=== PATIENT | male | born 1965 | race Caucasian/White ===

== ENCOUNTER 2017-06-22 15:56 | Emergency (ER) | payer MEDICAID ==
[~2017-06-22] VITALS: Ht 152.4 cm; Wt 86.0 kg
[~2017-06-22 15:56] MED LIST: SODI1TAB PO
[2017-06-22 16:00] VITALS: BP 176/109
[2017-06-22 16:40] LABS: BASOPHILS # (AUTO) 0.01 x10^3/uL (0-0.1); BASOPHILS % (AUTO) 0 % (0-1); EOSINOPHILS # (AUTO) 0.11 x10^3/uL (0-0.4); EOSINOPHILS % (AUTO) 1 % (1-7); LYMPHOCYTES # (AUTO) 1.96 x10^3/uL (1-3.4); LYMPHOCYTES % (AUTO) 18 % (22-44); MD NO; MEAN CORPUSCULAR HEMOGLOBIN 33.5 pg (27.5-34.5); MEAN CORPUSCULAR HGB CONC 34.3 g/dL (33.2-36.2); MEAN CORPUSCULAR VOLUME 97.7 fL (81-97); MONOCYTES # (AUTO) 0.94 x10^3/uL (0.2-0.8); MONOCYTES % (AUTO) 9 % (2-9); NEUTROPHILS # (AUTO) 7.81 x10^3/uL (1.8-6.8); NEUTROPHILS % (AUTO) 72 % (42-75); PLATELET COUNT 388 x10^3/uL (130-400); RED BLOOD COUNT 4.33 x10^6/uL (4.38-5.82); RED CELL DISTRIBUTION WIDTH 13.3 % (9.4-14.8)
[2017-06-22 16:47] LABS: ALBUMIN 3.7 g/dL (3.4-5.0); ANION GAP 5 mmol/L (5-15); CALCIUM 8.8 mg/dL (8.5-10.1); CHLORIDE 100 mmol/L (98-107); CREATININE 0.86 mg/dL (0.7-1.3)
[2017-06-22] MEDS ORDERED: CEFAZOLIN 1,000 MG IM ONE (17:00)
[2017-06-22] MEDS ORDERED: SULFAMETH./TRIMETHOPRIM DS 800MG/160MG TABLET PO ONE (17:00)
[2017-06-22] MEDS ORDERED: CEFAZOLIN 1,000 MG ONE (17:19)
[2017-06-22] MEDS ORDERED: SULFAMETH./TRIMETHOPRIM DS 800MG/160MG TABLET ONE (17:19)
== END 2017-06-22 17:29 | disposition home or self-care (01) ==
LOC: ED 17:18
DX: L03.116 Cellulitis of left lower limb (principal); I10 Essential (primary) hypertension
CPT/HCPCS: 36415; 80048; 82040; 85025; 96372; 99284; J0690

== ENCOUNTER 2017-06-23 14:09 | Emergency (ER) | payer MEDICAID ==
[~2017-06-23] VITALS: Ht 152.4 cm; Wt 85.6 kg
[2017-06-23 14:16] VITALS: BP 163/94
== END 2017-06-23 15:39 | disposition home or self-care (01) ==
LOC: ED 15:29
DX: L03.115 Cellulitis of right lower limb (principal); I10 Essential (primary) hypertension
CPT/HCPCS: 99281

== ENCOUNTER 2017-10-28 12:29 | Inpatient (IN) | payer MEDICAID ==
[~2017-10-28] VITALS: Ht 152.4 cm; Wt 84.6 kg
[2017-10-28] MEDS ORDERED: AMLO5TAB2 PO (13:19)
[2017-10-28] MEDS ORDERED: LISI-167 PO (13:19)
[2017-10-28] MEDS ORDERED: SODIUM CHLORIDE FLUSH 10ML SYR IVF ONE (14:00)
[2017-10-28] MEDS ORDERED: SODIUM CHLORIDE 0.9% 1,000ML IVBOLUS ONE (14:00)
[2017-10-28] MEDS ORDERED: SODIUM CHLORIDE 0.9%, 500ML IVBOLUS ONE (14:30)
[2017-10-28 14:39] LABS: INTERNATIONAL NORMALIZED RATIO 0.93 (0.93-1.1); PROTHROMBIN TIME 9.7 Seconds (9.6-11.5)
[2017-10-28 14:45] LABS: ANION GAP 13 mmol/L (5-15); BASOPHILS # (AUTO) 0.04 x10^3/uL (0-0.1); BASOPHILS % (AUTO) 0 % (0-1); CALCIUM 8.4 mg/dL (8.5-10.1); CHLORIDE 87 mmol/L (98-107); EOSINOPHILS # (AUTO) 0.11 x10^3/uL (0-0.4); EOSINOPHILS % (AUTO) 1 % (1-7); LYMPHOCYTES # (AUTO) 2.03 x10^3/uL (1-3.4); LYMPHOCYTES % (AUTO) 18 % (22-44); MD NO; MEAN CORPUSCULAR HEMOGLOBIN 33.5 pg (27.5-34.5); MEAN CORPUSCULAR VOLUME 98.5 fL (81-97); MEAN PLATELET VOLUME 7.6 fL (7.4-10.4); MONOCYTES # (AUTO) 1.33 x10^3/uL (0.2-0.8); MONOCYTES % (AUTO) 12 % (2-9); NEUTROPHILS # (AUTO) 7.83 x10^3/uL (1.8-6.8); NEUTROPHILS % (AUTO) 69 % (42-75); PLATELET COUNT 345 x10^3/uL (130-400)
[2017-10-28 14:48] LABS: ALANINE AMINOTRANSFERASE 31 U/L (12-78); ALKALINE PHOSPHATASE 80 U/L (45-117); BILIRUBIN,TOTAL 0.7 mg/dL (0.2-1.0); CREATININE 4.79 mg/dL (0.7-1.3); TOTAL PROTEIN 8.5 g/dL (6.4-8.2)
[2017-10-28] MEDS ORDERED: ONDANSETRON 2MG/ML, 2ML IVPush PRN (17:00)
[2017-10-28] MEDS ORDERED: ACETAMINOPHEN 325 MG TABLET PO PRN (17:00)
[2017-10-28] MEDS ORDERED: hydrALAzine 20 MG/ML, 1ML IVPush PRN (17:00)
[2017-10-28 17:24] LABS: CULTURE INDICATED? NO; MICROSCOPIC NOT IND
[2017-10-28 17:29] LABS: AMPHETAMINE SCREEN, URINE Positive (Negative); BARBITURATE SCREEN, URINE Negative (Negative); BENZODIAZEPINE SCREEN, URINE Negative (Negative); CANNABINOID SCREEN, URINE Negative (Negative); COCAINE SCREEN, URINE Negative (Negative); METHADONE SCREEN, URINE Negative (Negative); OPIATE SCREEN, URINE Negative (Negative)
[2017-10-28 17:34] LABS: OSMOLALITY,URINE 331 mOsm/kg (500-850)
[2017-10-28 17:35] LABS: SODIUM,URINE RANDOM 40 mmol/L
[2017-10-28] MEDS ORDERED: LORazepam 2 MG/ML, 1ML IVPush PRN (18:00)
[2017-10-28 20:24] VITALS: BP 112/67
[2017-10-28] MEDS: HEPARIN 5,000 UNITS/ML, 1ML SQ SCH (21:08)
[2017-10-28] MEDS: SODIUM CHLORIDE 0.9% 1,000 ML IV SCH (21:08)
[2017-10-29 03:57] VITALS: BP 106/68
[2017-10-29 06:07] LABS: BASOPHILS # (AUTO) 0.02 x10^3/uL (0-0.1); BASOPHILS % (AUTO) 0 % (0-1); EOSINOPHILS # (AUTO) 0.04 x10^3/uL (0-0.4); EOSINOPHILS % (AUTO) 1 % (1-7); LYMPHOCYTES # (AUTO) 1.46 x10^3/uL (1-3.4); LYMPHOCYTES % (AUTO) 22 % (22-44); MD NO; MEAN CORPUSCULAR HEMOGLOBIN 33.9 pg (27.5-34.5); MEAN CORPUSCULAR HGB CONC 34.6 g/dL (33.2-36.2); MEAN CORPUSCULAR VOLUME 98.2 fL (81-97); MEAN PLATELET VOLUME 7.3 fL (7.4-10.4); MONOCYTES # (AUTO) 0.75 x10^3/uL (0.2-0.8); MONOCYTES % (AUTO) 11 % (2-9); NEUTROPHILS # (AUTO) 4.28 x10^3/uL (1.8-6.8); NEUTROPHILS % (AUTO) 65 % (42-75); PLATELET COUNT 265 x10^3/uL (130-400); RED BLOOD COUNT 3.82 x10^6/uL (4.38-5.82); RED CELL DISTRIBUTION WIDTH 13.4 % (9.4-14.8)
[2017-10-29 06:23] LABS: CHLORIDE 106 mmol/L (98-107)
[2017-10-29 06:24] LABS: ALBUMIN 3.1 g/dL (3.4-5.0); ANION GAP 9 mmol/L (5-15); CALCIUM 8.1 mg/dL (8.5-10.1)
[2017-10-29 06:28] LABS: ALANINE AMINOTRANSFERASE 24 U/L (12-78); ALKALINE PHOSPHATASE 58 U/L (45-117); CREATININE 0.96 mg/dL (0.7-1.3); TOTAL PROTEIN 7.1 g/dL (6.4-8.2)
[2017-10-29 06:30] LABS: HEMOGLOBIN A1C 4.2 % (4.2-6.3)
[2017-10-29] MEDS: HEPARIN 5,000 UNITS/ML, 1ML SQ SCH ×3 (07:00→23:00)
[2017-10-29] MEDS: SODIUM CHLORIDE 0.9% 1,000 ML IV SCH (07:24)
[2017-10-29 08:41] VITALS: BP 111/73
[2017-10-29] MEDS: CHOLECALCIFEROL 1,000 UNIT TABLET PO SCH (13:30)
[2017-10-29 15:11] VITALS: BP 126/71
[2017-10-29 19:45] VITALS: BP 120/68
[2017-10-30 01:05] VITALS: BP 144/89
[2017-10-30] MEDS: HEPARIN 5,000 UNITS/ML, 1ML SQ SCH (07:00)
[2017-10-30] MEDS ORDERED: CHOL10003 PO (09:13)
[2017-10-30] MEDS: CHOLECALCIFEROL 1,000 UNIT TABLET PO SCH (09:43)
[2017-10-30 09:48] VITALS: BP 124/83
== END 2017-10-30 14:05 | disposition home or self-care (01) | DRG 683 ==
LOC: ED 14:35 → EDIP 15:40 → 4EST 18:27
PROVIDERS: ADMIT Hospitalist; ATTEND Hospitalist
DX: N17.9 Acute kidney failure, unspecified (principal); E87.1 Hypo-osmolality and hyponatremia; E83.51 Hypocalcemia; I95.9 Hypotension, unspecified; D72.829 Elevated white blood cell count, unspecified; E16.2 Hypoglycemia, unspecified; F10.10 Alcohol abuse, uncomplicated; F15.90 Other stimulant use, unspecified, uncomplicated; I10 Essential (primary) hypertension; R47.81 Slurred speech; Z91.19 Patient's noncompliance with other medical treatment and regimen; Z87.440 Personal history of urinary (tract) infections; Z79.899 Other long term (current) drug therapy; Z79.1 Long term (current) use of non-steroidal anti-inflammatories (NSAID)
CPT/HCPCS: 36415; 71045; 76770; 80053; 80307; 81003; 82140; 82306; 82550; 82570; 83036; 83605; 83690; 83930; 83935; 83970; 84295; 84300; 85025; 85610; 87040; 93005; 93306; 96360; J1644; J7030; J7040

== ENCOUNTER 2018-05-16 09:24 | Emergency (ER) | payer MEDICAID ==
[~2018-05-16] VITALS: Ht 152.4 cm; Wt 87.2 kg
[~2018-05-16 09:24] MED LIST changes: +AMLO5TAB7 PO; +CHOL10003 PO; +LISI-167 PO
[2018-05-16] MEDS ORDERED: SODIUM CHLORIDE FLUSH 10ML SYR IVF ONE (09:30)
[2018-05-16 09:31] VITALS: BP 172/110
[2018-05-16 09:50] LABS: BASOPHILS # (AUTO) 0.06 x10^3/uL (0-0.1); BASOPHILS % (AUTO) 1 % (0-1); EOSINOPHILS # (AUTO) 0.24 x10^3/uL (0-0.4); EOSINOPHILS % (AUTO) 4 % (1-7); LYMPHOCYTES # (AUTO) 2.19 x10^3/uL (1-3.4); LYMPHOCYTES % (AUTO) 35 % (22-44); MD NO; MEAN CORPUSCULAR HEMOGLOBIN 34.9 pg (27.5-34.5); MEAN CORPUSCULAR HGB CONC 35.1 g/dL (33.2-36.2); MEAN CORPUSCULAR VOLUME 99.3 fL (81-97); MEAN PLATELET VOLUME 7.1 fL (7.4-10.4); MONOCYTES # (AUTO) 0.54 x10^3/uL (0.2-0.8); MONOCYTES % (AUTO) 9 % (2-9); NEUTROPHILS # (AUTO) 3.17 x10^3/uL (1.8-6.8); NEUTROPHILS % (AUTO) 51 % (42-75); PLATELET COUNT 260 x10^3/uL (130-400); RED BLOOD COUNT 4.51 x10^6/uL (4.38-5.82)
[2018-05-16 09:59] LABS: INTERNATIONAL NORMALIZED RATIO 0.96 (0.93-1.1); PROTHROMBIN TIME 10.2 Seconds (9.6-11.5)
[2018-05-16 10:00] LABS: ALANINE AMINOTRANSFERASE 39 U/L (12-78); ALBUMIN 3.5 g/dL (3.4-5.0); ANION GAP 8 mmol/L (5-15); CALCIUM 7.5 mg/dL (8.5-10.1); CHLORIDE 103 mmol/L (98-107); CREATININE 0.71 mg/dL (0.7-1.3)
[2018-05-16] MEDS ORDERED: CEFAZOLIN PMX 1GM/50ML 50 ML IVPB ONE (10:00)
[2018-05-16 10:02] LABS: ALKALINE PHOSPHATASE 58 U/L (45-117); BILIRUBIN,TOTAL 0.5 mg/dL (0.2-1.0); TOTAL PROTEIN 7.9 g/dL (6.4-8.2)
[2018-05-16] MEDS ORDERED: CEFAZOLIN PMX 1GM/50ML 50 ML ONE (10:07)
[2018-05-16] MEDS ORDERED: OMNIPAQUE 350 MG/ML, 100ML BOTTLE ONE (10:38)
== END 2018-05-16 11:55 | disposition home or self-care (01) ==
LOC: ED 11:09
DX: S31.115A Laceration without foreign body of abdominal wall, periumbilic region without penetration into peritoneal cavity, initial encounter (principal); I10 Essential (primary) hypertension; Z72.9 Problem related to lifestyle, unspecified; X99.9XXA Assault by unspecified sharp object, initial encounter; Y93.89 Activity, other specified; Y99.8 Other external cause status; Y92.89 Other specified places as the place of occurrence of the external cause
CPT/HCPCS: 36415; 74177; 80053; 85025; 85610; 85730; 96365; 99284; J0690; Q9967

== ENCOUNTER 2019-09-02 14:27 | Emergency (ER) | payer MEDICAID ==
[~2019-09-02] VITALS: Ht 152.4 cm; Wt 97.3 kg
[~2019-09-02 14:27] MED LIST changes: +AMLO-150 PO; -AMLO5TAB7 PO
--- NOTE | 2019-09-02 17:08 | NUR ---
To rm 23 from lobby.
[2019-09-02] MEDS ORDERED: KETOROLAC 30 MG/1 ML IM ONE (17:30)
--- NOTE | 2019-09-02 17:30 | NUR ---
PT AMBULATED IN ROOM. PT C/O PAIN IN THE BACK OF HIS LEFT KNEE FOR THE LAST 6 MONTHS, AND HIS RIGHT ANKLE FOR THE PAST 6 MONTHS. PT STATES "IT HURTS REAL BAD, BUT NOW MY BOSS TOLD ME NOT TO COME BACK TO WORK UNTIL IT'S ALL FIXED. YOU GUYS GOTTA FIX ME." RN EXPLAINS THE PROCESS OF AN EMERGENCY ROOM VS A PRIMARY DOCTOR. RN INFORMS PATIENT THAT MD WILL GUIDE PATIENT ON FURTHER STEPS AFTER ALL TEST RESULTS ARE BACK. PT LYING ON STOMACHE.
[2019-09-02] MEDS ORDERED: KETOROLAC 30 MG/1 ML ONE (17:34)
--- NOTE | 2019-09-02 18:11 | NUR ---
PT AMBULATED DOWN HALLWAY TO BR PER PEDIS WITH STRONG STEADY GAIT. REQUESTING A BLANKET FOR HIS LEGS. PT AMBULATED BACK TO ROOM.
--- NOTE | 2019-09-02 18:13 | NUR ---
PT C/O PAIN, STATES "THE PAIN MEDICATION ONLY WORKED FOR 5 MINUTES". RN WILL INFORM MD.
[2019-09-02 19:05] VITALS: BP 151/99
--- NOTE | 2019-09-02 19:05 | NUR ---
task rn Patient/Caregiver given discharge instructions and they have confirmed that they understand the instructions. Patient wheeled to discharge desk
== END 2019-09-02 19:08 | disposition home or self-care (01) ==
LOC: ED 18:40
DX: M19.071 Primary osteoarthritis, right ankle and foot (principal); M17.12 Unilateral primary osteoarthritis, left knee; F10.10 Alcohol abuse, uncomplicated; Y90.0 Blood alcohol level of less than 20 mg/100 ml; I10 Essential (primary) hypertension; I95.9 Hypotension, unspecified
CPT/HCPCS: 73564; 73610; 96372; 99284; J1885